=== PATIENT | male | born 1940 | race Caucasian/White ===

== ENCOUNTER 2016-10-14 13:24 | Emergency (ER) | payer MEDICARE, OTHER ==
[~2016-10-14 13:24] MED LIST: ACETAMINOP160 MG/51 PEG; ASPIRIN325 MG PEG; BENICAR5 MG PEG; CARDIZEM30 MG PEG; DOCUSATE S50 MG/5 ML PEG; DULCOLAX10 MG PR; ENEMA133 ML PR; FIBERSOURCE H1000 ML PEG; LIPITOR20 MG PEG; METOPROLOL TART25 MG PEG; PROTONIX40 MG PO; RISPERDAL0.5 MG PEG; SENNA8.6 MG PEG; VITAMIN D32000 UNI1 PEG
== END 2016-10-14 14:36 | disposition home or self-care (01) ==
LOC: ER 13:24 → EDBD 13:24 → ER 14:36
DX: Z43.1 Encounter for attention to gastrostomy (principal); I10 Essential (primary) hypertension; Z86.73 Personal history of transient ischemic attack (TIA), and cerebral infarction without residual deficits; Z79.82 Long term (current) use of aspirin; Z79.899 Other long term (current) drug therapy

== ENCOUNTER 2016-12-12 09:00 | Emergency (ER) | payer MEDICARE, OTHER | END 2016-12-12 11:40 | disposition home or self-care (01) | LOC: ER 09:00 | DX: Z43.1 Encounter for attention to gastrostomy (principal); F42.9 Obsessive-compulsive disorder, unspecified; I25.10 Atherosclerotic heart disease of native coronary artery without angina pectoris; I11.0 Hypertensive heart disease with heart failure; I50.9 Heart failure, unspecified; Z86.73 Personal history of transient ischemic attack (TIA), and cerebral infarction without residual deficits; Z79.82 Long term (current) use of aspirin; Z79.899 Other long term (current) drug therapy | CPT/HCPCS: 96374; 96375 ==